=== PATIENT | female | born 1990 | race Caucasian/White ===

== ENCOUNTER 2020-06-24 12:26 | Emergency (ER) | payer OTHER ==
[2020-06-24 12:40] VITALS: TEMP 98; BMI 39.1
--- NOTE | 2020-06-24 12:57 | PDOC ---
History of Present Illness <Chasity Delvalle - Last Filed: 06/24/20 13:29> - General History Source: Patient - History of Present Illness Timing/Duration: reports: constant, getting worse Abdominal Pain Onset Location: reports: flank Pain Radiation: reports: RLQ <Jeanine Kilpatrick Last Filed: 06/24/20 16:01> - General Chief Complaint: Pain Stated Complaint: ABD PAIN Time Seen by Provider: 06/24/20 12:50 Past History <Chasity Delvalle - Last Filed: 06/24/20 13:29> - Medical History Asthma: Yes COPD: No GI Disorders: Yes (gerd) - Reproductive History Is Patient Now?: No - Psycho-Social/Smoking History Smoking History: Never smoked Have you smoked in the past 12 months: No Information on smoking cessation initiated: No - Substance Abuse Hx (Audit-C & DAST Scrn) How often the patient has a drink containing alcohol: Monthly or less Number of drinks the patient has on a typical day: 1 or 2 How often the patient has six or more drinks on one occasion: Never Score: In Men: 4 or > Positive; In Women: 3 or > Positive: 1 Screen Result (Pos requires Nsg. Audit-10AR): Negative In the last yr the pt used illegal drug/Rx for NonMed reason: No Score: Yes response is considered Positive: 0 Screen Result (Positive result requires Nsg. DAST-10): Negative <Jeanine Kilpatrick Last Filed: 06/24/20 16:01> - Medical History Allergies/Adverse Reactions: Allergies Allergy/AdvReac Type Severity Reaction Status Date / Time No Known Allergies Allergy Verified 06/24/20 12:37 Home Medications: Ambulatory Orders Loratadine [Claritin -] 10 mg PO DAILY 06/24/20 Montelukast Sodium [Singulair] 10 mg PO DAILY 06/24/20 Omeprazole 20 mg PO DAILY 06/24/20 Review of Systems - Review of Systems Constitutional: No: Chills, Fever ABD/GI: No: Blood Streaked Bowels, Constipated, Diarrhea, Nausea, Rectal Bleeding, Vomiting, Tarry Stools : Yes: Flank Pain, Hematuria. No: Burning, Dysuria <ShonnaPaigeAmosPayton Last Filed: 06/24/20 16:01> *Physical Exam - Vital Signs Last Vital Signs Temp Pulse Resp BP Pulse Ox 98 F 70 18 124/70 97 06/24/20 12:38 06/24/20 12:38 06/24/20 12:38 06/24/20 12:38 06/24/20 12:38 <Chasity Delvalle - Last Filed: 06/24/20 13:29> - Vital Signs Last Vital Signs Temp Pulse Resp BP Pulse Ox 98 F 70 18 124/70 97 06/24/20 12:38 06/24/20 12:38 06/24/20 12:38 06/24/20 12:38 06/24/20 12:38 - Physical Exam General Appearance: Yes: Appropriately Dressed. No: Apparent Distress HEENT: positive: Normal Voice Neck: positive: Supple Respiratory/Chest: negative: Respiratory Distress Gastrointestinal/Abdominal: positive: Normal Bowel Sounds, Tender (sig ttp to RLQ), Soft. negative: Distended, Guarding, Rebound Musculoskeletal: negative: CVA Tenderness Integumentary: positive: Dry, Warm Neurologic: positive: Fully Oriented, Alert, Normal Mood/Affect <Jeanine Kilpatrick - Last Filed: 06/24/20 16:01> ED Treatment Course - Medications Given in the ED: ED Medications Discontinued Medications Generic Name Dose Route Start Last Admin Trade Name Freq PRN Reason Stop Dose Admin Ketorolac Tromethamine 30 mg 06/24/20 12:59 06/24/20 13:25 Toradol Injection - IVPUSH 06/24/20 13:00 30 mg ONCE ONE Administration <Chasity Delvalle - Last Filed: 06/24/20 13:29> - LABORATORY CBC & Chemistry Diagram: 06/24/20 13:21 06/24/20 13:21 <Jeanine Kilpatrick - Last Filed: 06/24/20 16:01> Medical Decision Making - Medical Decision Making The patient was seen and evaluated in conjunction with midlevel provider under my direct supervision, ancillary studies were reviewed. I agree with the plan as outlined with ANA Kilpatrick. HPI, workup/dispo as outlined. VS reviewed, wnl. Vital Signs Temp Pulse Resp BP Pulse Ox 98 F 70 18 124/70 97 06/24/20 12:38 06/24/20 12:38 06/24/20 12:38 06/24/20 12:38 06/24/20 12:38 06/24/20 13:29 <Chasity Delvalle - Last Filed: 06/24/20 13:29> - Medical Decision Making 06/24/20 12:55 29 yo morbidly obesed female, h/o erosive esophagitis on omeprazole, here w/ R flank pain. Patient states pain started while laying in bed yesterday, initially thought it was gas pains but states pain has been constant and has gotten worse, now localizing to RLQ. No nausea, vomiting, dysuria, change to b owel movements, fever or chills. Denies any vaginal discharge or new sexual partner. States she is currently on menses but that this does not feel like her usual menstrual cramps with her esophagitis see exam R/o appy vs renal colic vs uti/pyelo, less likely biliary -pain control -labs -CT 06/24/20 16:[address] unremarkable. Pt asx at discharge. To f/u with PMD <Jeanine Kilpatrick - Last Filed: 06/24/20 16:01> Discharge <Chasity Delvalle - Last Filed: 06/24/20 13:29> - Discharge Information Problems reviewed: Yes <Jeanine Kilpatrick - Last Filed: 06/24/20 16:01> - Discharge Information Clinical Impression/Diagnosis: Flank pain Condition: Improved Disposition: HOME - Patient Discharge Instructions Patient Printed Discharge Instructions: DI for Abdominal Pain-Adult Additional Instructions: The cause of your abdominal pain is unclear at this time as your labs and CT were normal Take Tylenol or Motrin for pain and if pain continues please follow-up with your PMD
[2020-06-24] MEDS ORDERED: KETOROLAC TROMETHAMINE 30 MG/1 ML VIAL IVPUSH ONE (12:59)
[2020-06-24] MEDS ORDERED: KETOROLAC TROMETHAMINE 30 MG/1 ML VIAL ONE (13:12)
[2020-06-24 14:05] LABS: BASO % 0.5 % (0-2.0); EOS % 4.7 % (0-4.5); HEMOGLOBIN 12.7 GM/dL (10.7-15.3); LYMPH % 25.2 % (8-40); MCH 31.8 pg (25.7-33.7); MCHC 34.4 g/dl (32.0-36.0); MEAN CELL VOLUME 92.4 fl (80-96); MEAN PLT VOLUME 10.3 fl (7.5-11.1); MONO % 6.2 % (3.8-10.2); NEUT % 63.4 % (42.8-82.8); PLATELET COUNT 292 K/MM3 (134-434); RBC 4.01 M/mm3 (3.60-5.2); RDW 13.1 % (11.6-15.6); WHITE BLOOD COUNT 8.1 K/mm3 (4.0-10.0)
[2020-06-24 14:12] LABS: HCG,QUALITATIVE URINE Negative
[2020-06-24 14:21] LABS: EPI CELLS 21 /uL (0-25.1); HYALINE CASTS 1 /uL (0-3.1); PH,URINE 5.5 (5.0-8.0); URINE APPEARANCE TURBID; URINE BACTERIA 76 /uL (0-1359); URINE BILIRUBIN NEGATIVE (NEGATIVE); URINE COLOR YELLOW; URINE GLUCOSE (UA) NEGATIVE (NEGATIVE); URINE KETONE NEGATIVE (NEGATIVE); URINE LEUK ESTERASE NEGATIVE (NEGATIVE); URINE NITRITE NEGATIVE (NEGATIVE); URINE PROTEIN NEGATIVE (NEGATIVE); URINE RBC 23 /uL (0-23.9); URINE UROBILINOGEN 0.2 mg/dL (0.2-1.0); URINE WBC 7 /uL (0-25.8)
[2020-06-24 14:38] LABS: BILIRUBIN,TOTAL 0.8 mg/dL (0.2-1); CREATININE 0.7 mg/dL (0.55-1.3); POTASSIUM 4.5 mmol/L (3.5-5.1); TOT PROT 7.8 g/dl (6.4-8.2)
[2020-06-24 16:22] VITALS: BP 120/76; PULSE 85
== END 2020-06-24 16:22 | disposition home or self-care (01) ==
LOC: JER 12:26
PROC: 3E0333Z Introduction of Anti-inflammatory into Peripheral Vein, Percutaneous Approach (ICD-10-PCS; principal; 2020-06-24)
DX: R10.9 Unspecified abdominal pain (principal)
CPT/HCPCS: 36415; 74177-TC; 80053; 81003; 84703; 85025; 87086; 99284-25; Q9967